=== PATIENT | female | born 1985 | race African-American/Black ===

== ENCOUNTER 2017-05-25 02:34 | Emergency (ER) | payer SELFPAY ==
[~2017-05-25] VITALS: Ht 170.2 cm; Wt 56.6 kg
[~2017-05-25 02:34] MED LIST: AMOXICILLIN500 MG PO; AUGMENTIN875 MG OR; CORTISPORIN OTI10 ML AD; FLEXERIL10 MG PO; LORTAB 10 OR; MACROBID100 MG PO; MEDDOSEPAK PO; NAPROSYN500 MG PO; NO HOME MEDS; PENICILLN VK500 MG PO; PREVACID30 M2 PO; PYRIDIUM200 MG PO; REGLAN10 MG OR
[2017-05-25 03:11] VITALS: BP 121/81
== END 2017-05-25 03:11 | disposition left against medical advice (07) | DRG 607 ==
LOC: ED 02:34
DX: R22.0 Localized swelling, mass and lump, head (principal); Z91.19 Patient's noncompliance with other medical treatment and regimen

== ENCOUNTER 2019-05-23 02:43 | Emergency (ER) | payer SELFPAY ==
[~2019-05-23] VITALS: Ht 172.7 cm; Wt 60.0 kg
[2019-05-23] MEDS ORDERED: VOLTAREN - GENE75 MG PO (02:59)
[2019-05-23] MEDS ORDERED: TRAMADOL HCL50 MG PO (02:59)
[2019-05-23] MEDS ORDERED: AMOXICILLIN500 MG PO (02:59)
[2019-05-23 03:31] VITALS: BP 129/88
== END 2019-05-23 03:32 | disposition home or self-care (01) | DRG 159 ==
LOC: ED 02:43
DX: K02.9 Dental caries, unspecified (principal); K04.7 Periapical abscess without sinus

== ENCOUNTER 2019-08-23 05:55 | Emergency (ER) | payer SELFPAY ==
[~2019-08-23] VITALS: Ht 172.7 cm; Wt 56.8 kg
[~2019-08-23 05:55] MED LIST changes: +TRAMADOL HCL50 MG PO; +VOLTAREN - GENE75 MG PO
[2019-08-23 06:52] VITALS: BP 131/88
== END 2019-08-23 06:43 | disposition left against medical advice (07) | DRG 951 ==
LOC: ED 05:55 → LWOBS 06:43
DX: Z53.21 Procedure and treatment not carried out due to patient leaving prior to being seen by health care provider (principal)

== ENCOUNTER 2019-11-03 | Emergency (ER) | payer BC ==
[2019-11-03 17:03] LABS: HEMOGLOBIN 11.9 g/dl (12.0-16.0); IMMATURE GRANULOCYTES 0.3 % (0.0-5.0); MEAN CORPUSCULAR HGB 27.5 pG CALC (26.0-32.0); MEAN CORPUSCULAR HGB CONC 31.3 g/L CALC (32.0-36.0); NEUT# 5.3 thou/uL (2.00-7.15); RED BLOOD COUNT 4.32 mill/uL (4.20-5.60); RED CELL DISTRI WIDTH 13.1 % (11.5-15.5)
[2019-11-03 17:21] LABS: ALBUMIN 4.5 g/dL (3.2-5.0); ALKALINE PHOSPHATASE 60 u/l (38-126); ANION GAP 13 (6-22 (CALC)); BILIRUBIN, TOTAL 0.5 mg/dL (0.0-1.4); BUN 10 mg/dL (7-17); BUN/CREATININE RATIO 13 (12-20 (CALC)); CARBON DIOXIDE 22 mmol/l (22-30); CHLORIDE 105 mmol/l (95-108); CREATININE 0.8 mg/dL (0.5-1.0); GFR > 60 ML/MIN (>=60 (CALC)); GFR FOR AFR.AMER. > 60 ML/MIN (>=60 (CALC)); LIPASE 114 u/l (23-300); POTASSIUM 3.7 mmol/l (3.5-5.1); SGOT/AST 24 u/l (14-36); SODIUM 137 mmol/l (137-146); TOTAL PROTEIN 8.9 g/dL (6.3-8.2)
[2019-11-03] MEDS ORDERED: NAPROSYN250 MG PO ×2 (18:05)
[2019-11-03 18:36] LABS: URINE BILIRUBIN - DIPSTICK NEGATIVE (NEGATIVE); URINE BLOOD DIPSTICK NEGATIVE (NEGATIVE); URINE COLOR YELLOW; URINE GLUCOSE - DIPSTICK NEGATIVE (NEGATIVE); URINE KETONE NEGATIVE (NEGATIVE); URINE LEUK ESTERASE NEGATIVE (NEGATIVE); URINE NITRITE - DIPSTICK NEGATIVE (Negative); URINE PROTEIN - DIPSTICK NEGATIVE (NEG-TRACE); URINE UROBILINOGEN - DIPSTICK 0.2 E.U./dL (0.2)
[2019-11-03 18:41] LABS: URINE AMORPH SEDIMENT MANY hpf (NONE-FEW); URINE RBC 0-2 RBC/hpf (0-5); URINE SQUAMOUS EPITHELIAL CELL FEW EPI/hpf (0-FEW); URINE WBC 0-2 WBC/hpf (0-5)
== END 2019-11-03 18:28 | disposition home or self-care (01) | DRG 313 ==
DX: R07.89 Other chest pain (principal)

== ENCOUNTER 2020-03-26 09:03 | Emergency (ER) | payer SELFPAY ==
[~2020-03-26] VITALS: Ht 172.7 cm; Wt 55.0 kg
[~2020-03-26 09:03] MED LIST changes: +NAPROSYN250 MG PO
[2020-03-26] MEDS ORDERED: MEDDOSEPAK PO ×2 (09:36)
[2020-03-26 09:43] VITALS: BP 131/83
== END 2020-03-26 10:00 | disposition home or self-care (01) | DRG 596 ==
LOC: ED 09:03
DX: L93.1 Subacute cutaneous lupus erythematosus (principal)

== ENCOUNTER 2020-06-12 08:16 | Emergency (ER) | payer SELFPAY ==
[~2020-06-12] VITALS: Ht 172.7 cm; Wt 55.0 kg
[2020-06-12] MEDS ORDERED: MEDDOSEPAK PO ×3 (08:44→09:00)
[2020-06-12] MEDS ORDERED: CEPHALEXIN500 MG PO (09:07)
[2020-06-12] MEDS ORDERED: NEOSPORI2 EX ×2 (09:07)
[2020-06-12 09:11] VITALS: BP 138/85
== END 2020-06-12 09:18 | disposition home or self-care (01) | DRG 596 ==
LOC: ED 08:16
DX: L93.0 Discoid lupus erythematosus (principal); S80.861A Insect bite (nonvenomous), right lower leg, initial encounter; L08.9 Local infection of the skin and subcutaneous tissue, unspecified; W57.XXXA Bitten or stung by nonvenomous insect and other nonvenomous arthropods, initial encounter

== ENCOUNTER 2020-06-23 04:36 | Emergency (ER) | payer SELFPAY ==
[~2020-06-23] VITALS: Ht 172.7 cm; Wt 56.8 kg
[~2020-06-23 04:36] MED LIST changes: +CEPHALEXIN500 MG PO; +NEOSPORI2 EX
[2020-06-23 05:44] LABS: HEMATOCRIT 38.3 % (37.0-47.0); HEMOGLOBIN 12.3 g/dl (12.0-16.0); IMMATURE GRANULOCYTES 0.2 % (0.0-5.0); MEAN CORPUSCULAR HGB CONC 32.1 g/dL CAL (32.0-36.0); NEUT# 3.04 thou/uL (2.00-7.15); RED BLOOD COUNT 4.4 mill/uL (4.20-5.60); RED CELL DISTRI WIDTH 12.2 % (11.5-15.5)
[2020-06-23 05:47] LABS: URINE BILIRUBIN - DIPSTICK NEGATIVE (NEGATIVE); URINE BLOOD DIPSTICK NEGATIVE (NEGATIVE); URINE COLOR YELLOW; URINE GLUCOSE - DIPSTICK NEGATIVE (NEGATIVE); URINE KETONE NEGATIVE (NEGATIVE); URINE LEUK ESTERASE NEGATIVE (NEGATIVE); URINE NITRITE - DIPSTICK NEGATIVE (Negative); URINE PH 6.5 (4.5-8.0); URINE PROTEIN - DIPSTICK NEGATIVE (NEG-TRACE); URINE SPECIFIC GRAVITY 1.025; URINE UROBILINOGEN - DIPSTICK 0.2 E.U./dL (0.2)
[2020-06-23 05:58] LABS: ALBUMIN 4.3 g/dL (3.2-5.0); ALKALINE PHOSPHATASE 74 u/l (38-126); AMYLASE 131 u/l (30-110); ANION GAP 12 (6-22 (CALC)); BILIRUBIN, TOTAL 0.5 mg/dL (0.0-1.4); BUN 9 mg/dL (7-17); BUN/CREATININE RATIO 12 (12-20 (CALC)); CARBON DIOXIDE 23 mmol/l (22-30); CHLORIDE 107 mmol/l (95-108); CREATININE 0.7 mg/dL (0.5-1.0); GFR > 60 ML/MIN (>=60 (CALC)); GFR FOR AFR.AMER. > 60 ML/MIN (>=60 (CALC)); LIPASE 157 u/l (23-300); SGOT/AST 24 u/l (14-36); SODIUM 138 mmol/l (137-146); TOTAL PROTEIN 8.3 g/dL (6.3-8.2)
[2020-06-23 10:00] VITALS: BP 132/74
== END 2020-06-23 10:00 | disposition home or self-care (01) | DRG 761 ==
LOC: ED 04:36
PROVIDERS: Emergency Medicine
DX: N83.201 Unspecified ovarian cyst, right side (principal)
CPT/HCPCS: Q9967

== ENCOUNTER 2020-10-23 06:52 | Emergency (ER) | payer SELFPAY ==
[~2020-10-23] VITALS: Ht 172.7 cm; Wt 61.2 kg
[2020-10-23] MEDS ORDERED: MEDDOSEPAK PO (07:31)
[2020-10-23 08:04] VITALS: BP 110/63
== END 2020-10-23 08:04 | disposition home or self-care (01) | DRG 596 ==
LOC: ED 06:52
DX: L93.1 Subacute cutaneous lupus erythematosus (principal)

== ENCOUNTER 2020-11-22 07:04 | Emergency (ER) | payer SELFPAY ==
[~2020-11-22] VITALS: Ht 172.7 cm; Wt 65.0 kg
[2020-11-22 07:55] LABS: URINE BILIRUBIN - DIPSTICK NEGATIVE (NEGATIVE); URINE BLOOD DIPSTICK NEGATIVE (NEGATIVE); URINE COLOR YELLOW; URINE GLUCOSE - DIPSTICK NEGATIVE (NEGATIVE); URINE KETONE NEGATIVE (NEGATIVE); URINE LEUK ESTERASE NEGATIVE (NEGATIVE); URINE NITRITE - DIPSTICK NEGATIVE (Negative); URINE PROTEIN - DIPSTICK NEGATIVE (NEG-TRACE); URINE UROBILINOGEN - DIPSTICK 0.2 E.U./dL (0.2)
[2020-11-22] MEDS ORDERED: NAPROXEN500 MG PO (08:48)
[2020-11-22] MEDS ORDERED: CYCLOBENZAPRINE10 MG PO (08:48)
[2020-11-22 08:53] VITALS: BP 139/79
== END 2020-11-22 09:00 | disposition home or self-care (01) | DRG 552 ==
LOC: ED 07:04
PROVIDERS: Emergency Medicine
DX: S13.9XXA Sprain of joints and ligaments of unspecified parts of neck, initial encounter (principal); X50.1XXA Overexertion from prolonged static or awkward postures, initial encounter; Y93.89 Activity, other specified; Y92.89 Other specified places as the place of occurrence of the external cause

== ENCOUNTER 2021-02-04 03:03 | Emergency (ER) | payer OTHER ==
[~2021-02-04] VITALS: Ht 172.7 cm; Wt 59.0 kg
[~2021-02-04 03:03] MED LIST changes: +CYCLOBENZAPRINE10 MG PO; +NAPROXEN500 MG PO
[2021-02-04 03:39] LABS: HEMATOCRIT 41.4 % (37.0-47.0); HEMOGLOBIN 12.6 g/dl (12.0-16.0); IMMATURE GRANULOCYTES 0.3 % (0.0-5.0); MEAN CORPUSCULAR HGB 27.4 pG CALC (26.0-32.0); MEAN CORPUSCULAR HGB CONC 30.4 g/dL CAL (32.0-36.0); NEUT# 1.7 thou/uL (2.00-7.15); RED BLOOD COUNT 4.6 mill/uL (4.20-5.60); RED CELL DISTRI WIDTH 12.7 % (11.5-15.5)
[2021-02-04 03:43] LABS: URINE BILIRUBIN - DIPSTICK NEGATIVE (NEGATIVE); URINE BLOOD DIPSTICK NEGATIVE (NEGATIVE); URINE COLOR YELLOW; URINE GLUCOSE - DIPSTICK NEGATIVE (NEGATIVE); URINE KETONE NEGATIVE (NEGATIVE); URINE LEUK ESTERASE NEGATIVE (NEGATIVE); URINE PROTEIN - DIPSTICK NEGATIVE (NEG-TRACE); URINE SPECIFIC GRAVITY 1.015; URINE UROBILINOGEN - DIPSTICK 0.2 E.U./dL (0.2)
[2021-02-04 03:44] LABS: URINE NITRITE - DIPSTICK NEGATIVE (Negative)
[2021-02-04 04:06] LABS: ALBUMIN 4.2 g/dL (3.2-5.0); ALKALINE PHOSPHATASE 62 u/l (38-126); ANION GAP 11 (6-22 (CALC)); BILIRUBIN, TOTAL 0.7 mg/dL (0.0-1.4); BUN 9 mg/dL (7-17); BUN/CREATININE RATIO 10 (12-20 (CALC)); CARBON DIOXIDE 25 mmol/l (22-30); CHLORIDE 106 mmol/l (95-108); CREATININE 0.9 mg/dL (0.5-1.0); GFR > 60 ML/MIN (>=60 (CALC)); GFR FOR AFR.AMER. > 60 ML/MIN (>=60 (CALC)); LIPASE 260 u/l (23-300); SGOT/AST 26 u/l (14-36); SODIUM 138 mmol/l (137-146); TOTAL PROTEIN 8.4 g/dL (6.3-8.2)
[2021-02-04 06:18] VITALS: BP 116/78
== END 2021-02-04 06:30 | disposition home or self-care (01) | DRG 392 ==
LOC: ED 03:03
PROVIDERS: Emergency Medicine
DX: R10.32 Left lower quadrant pain (principal); N85.9 Noninflammatory disorder of uterus, unspecified
CPT/HCPCS: Q9967

== ENCOUNTER 2021-12-19 00:48 | Emergency (ER) | payer SELFPAY ==
[~2021-12-19] VITALS: Ht 172.7 cm; Wt 60.0 kg
[2021-12-19] MEDS ORDERED: PREDNISONE5 MG PO (01:05)
[2021-12-19 02:06] LABS: HEMATOCRIT 37.8 % (37.0-47.0); HEMOGLOBIN 12.1 g/dl (12.0-16.0); MEAN CELL VOLUME 88.5 fL CALC (80.0-100.0); MEAN CORPUSCULAR HGB 28.3 pG CALC (26.0-32.0); NEUT# 2.41 thou/uL (2.00-7.15); RED BLOOD COUNT 4.27 mill/uL (4.20-5.60); RED CELL DISTRI WIDTH 12.3 % (11.5-15.5)
[2021-12-19 02:18] LABS: ALKALINE PHOSPHATASE 60 u/l (38-126); AMYLASE 117 u/l (30-110); ANION GAP 10 (6-22 (CALC)); BILIRUBIN, TOTAL 0.5 mg/dL (0.0-1.4); BUN 7 mg/dL (7-17); BUN/CREATININE RATIO 8 (12-20 (CALC)); CARBON DIOXIDE 21 mmol/l (22-30); CHLORIDE 109 mmol/l (95-108); CREATININE 0.8 mg/dL (0.5-1.0); GFR > 60 ML/MIN (>=60 (CALC)); GFR FOR AFR.AMER. > 60 ML/MIN (>=60 (CALC)); LIPASE 170 u/l (23-300); POTASSIUM 3.7 mmol/l (3.5-5.1); SGOT/AST 22 u/l (14-36); SODIUM 137 mmol/l (137-146); TOTAL PROTEIN 7.9 g/dL (6.3-8.2)
[2021-12-19] MEDS ORDERED: TORADOL PO (05:01)
[2021-12-19 05:04] VITALS: BP 118/84
== END 2021-12-19 05:16 | disposition home or self-care (01) | DRG 392 ==
LOC: ED 00:48
PROVIDERS: Emergency Medicine
DX: R10.32 Left lower quadrant pain (principal)

== ENCOUNTER 2022-02-13 13:21 | Emergency (ER) | payer OTHER ==
[~2022-02-13] VITALS: Ht 172.7 cm; Wt 62.0 kg
[~2022-02-13 13:21] MED LIST changes: +PREDNISONE5 MG PO; +TORADOL PO
[2022-02-13 13:51] VITALS: BP 136/93
[2022-02-13 14:11] LABS: HEMOGLOBIN 12.1 g/dl (12.0-16.0); IMMATURE GRANULOCYTES 0.1 % (0.0-5.0); MEAN CELL VOLUME 89.6 fL CALC (80.0-100.0); MEAN CORPUSCULAR HGB 28.5 pG CALC (26.0-32.0); MEAN CORPUSCULAR HGB CONC 31.8 g/dL CAL (32.0-36.0); NEUT# 9.26 thou/uL (2.00-7.15); RED BLOOD COUNT 4.24 mill/uL (4.20-5.60); RED CELL DISTRI WIDTH 12.4 % (11.5-15.5)
[2022-02-13 14:13] LABS: URINE BILIRUBIN - DIPSTICK NEGATIVE (NEGATIVE); URINE BLOOD DIPSTICK NEGATIVE (NEGATIVE); URINE COLOR YELLOW; URINE GLUCOSE - DIPSTICK NEGATIVE (NEGATIVE); URINE KETONE NEGATIVE (NEGATIVE); URINE LEUK ESTERASE NEGATIVE (NEGATIVE); URINE PH 7.5 (4.5-8.0); URINE PROTEIN - DIPSTICK NEGATIVE (NEG-TRACE); URINE SPECIFIC GRAVITY 1.025
[2022-02-13 14:18] LABS: URINE NITRITE - DIPSTICK NEGATIVE (Negative)
[2022-02-13 14:21] LABS: URINE SQUAMOUS EPITHELIAL CELL MANY EPI/hpf (0-FEW)
[2022-02-13 14:39] LABS: ANION GAP 11 (6-22 (CALC)); BUN 7 mg/dL (7-17); BUN/CREATININE RATIO 9 (12-20 (CALC)); CARBON DIOXIDE 25 mmol/l (22-30); CHLORIDE 106 mmol/l (95-108); CREATININE 0.8 mg/dL (0.5-1.0); GFR > 60 ML/MIN (>=60 (CALC)); GFR FOR AFR.AMER. > 60 ML/MIN (>=60 (CALC)); SODIUM 137 mmol/l (137-146)
[2022-02-13] MEDS ORDERED: MEDROL4 M1 PO (15:01)
[2022-02-13 15:24] VITALS: BP 136/93
== END 2022-02-13 15:40 | disposition home or self-care (01) | DRG 552 ==
LOC: ED 13:21
PROVIDERS: Nurse Practitioner
DX: M54.50 Low back pain, unspecified (principal); M79.605 Pain in left leg; M79.604 Pain in right leg

== ENCOUNTER 2022-12-02 03:09 | Emergency (ER) | payer SELFPAY ==
[~2022-12-02] VITALS: Ht 172.7 cm; Wt 57.0 kg
[~2022-12-02 03:09] MED LIST changes: +MEDROL4 M1 PO
[2022-12-02 03:19] VITALS: BP 122/87
[2022-12-02 03:30] VITALS: BP 125/89
[2022-12-02 04:21] VITALS: BP 125/89
== END 2022-12-02 03:59 | disposition left against medical advice (07) | DRG 951 ==
LOC: ED 03:09 → LWOBS 03:59
DX: Z53.21 Procedure and treatment not carried out due to patient leaving prior to being seen by health care provider (principal)

== ENCOUNTER 2023-05-19 06:33 | Emergency (ER) | payer OTHER ==
[~2023-05-19] VITALS: Ht 172.7 cm; Wt 61.0 kg
[2023-05-19 08:21] LABS: BASO% 0.3 % (0-3); HEMATOCRIT 41.8 % (37.0-47.0); HEMOGLOBIN 13.1 g/dl (12.0-16.0); LYMPH% 22.5 % (15-41); MEAN CELL VOLUME 89.5 fL CALC (80.0-100.0); MEAN CORPUSCULAR HGB 28.1 pG CALC (26.0-32.0); MEAN CORPUSCULAR HGB CONC 31.3 g/dL CAL (32.0-36.0); MONO% 13.4 % (2-13); NEUT# 2.43 thou/uL (2.00-7.15); NEUT% 62.8 % (42-76); RED BLOOD COUNT 4.67 mill/uL (4.20-5.60); RED CELL DISTRI WIDTH 12.3 % (11.5-15.5)
[2023-05-19] MEDS ORDERED: BETAMETH DIP0.052 EX (08:29)
[2023-05-19] MEDS ORDERED: ALDACTONE25 MG PO (08:29)
[2023-05-19 09:06] LABS: ALBUMIN 4.6 g/dL (3.2-5.0); ALKALINE PHOSPHATASE 52 u/l (38-126); BUN 11 mg/dL (7-17); BUN/CREATININE RATIO 12 (12-20 (CALC)); CARBON DIOXIDE 24 mmol/l (22-30); CHLORIDE 106 mmol/l (95-108); CREATININE 0.9 mg/dL (0.5-1.0); GFR FOR AFR.AMER. > 60 ML/MIN (>=60 (CALC)); GFR OTHER RACES > 60 ML/MIN (>=60 (CALC)); SODIUM 139 mmol/l (137-146); TOTAL PROTEIN 8.9 g/dL (6.3-8.2)
[2023-05-19 09:08] LABS: ANION GAP 14 (6-22 (CALC)); BILIRUBIN, TOTAL 0.8 mg/dL (0.02-1.3); SGOT/AST 40 u/l (14-36)
[2023-05-19] MEDS ORDERED: MEDROL DOSEPAK4 MG PO (09:30)
[2023-05-19 09:32] VITALS: BP 125/77
== END 2023-05-19 09:32 | disposition home or self-care (01) | DRG 547 ==
LOC: ED 06:33
PROVIDERS: Family Medicine
DX: M32.9 Systemic lupus erythematosus, unspecified (principal)

== ENCOUNTER 2023-06-08 02:06 | Emergency (ER) | payer OTHER ==
[~2023-06-08] VITALS: Ht 172.7 cm; Wt 61.2 kg
[~2023-06-08 02:06] MED LIST changes: +ALDACTONE25 MG PO; +BETAMETH DIP0.052 EX; +MEDROL DOSEPAK4 MG PO
[2023-06-08 02:18] VITALS: BP 118/84
[2023-06-08] MEDS ORDERED: LORTAB 1010 MG PO ×2 (02:39→03:18)
[2023-06-08] MEDS ORDERED: AMOXICILLIN500 MG PO ×2 (02:39→03:18)
== END 2023-06-08 03:17 | disposition home or self-care (01) | DRG 159 ==
LOC: ED 02:06
DX: K04.7 Periapical abscess without sinus (principal); S02.5XXA Fracture of tooth (traumatic), initial encounter for closed fracture; X58.XXXA Exposure to other specified factors, initial encounter

== ENCOUNTER 2024-12-07 16:36 | Emergency (ER) | payer OTHER ==
[~2024-12-07] VITALS: Ht 172.7 cm; Wt 64.0 kg
[~2024-12-07 16:36] MED LIST changes: +LORTAB 1010 MG PO; +PROTONIX40 M2 PO
[2024-12-07 17:10] LABS: URINE BILIRUBIN - DIPSTICK Negative (NEGATIVE); URINE BLOOD DIPSTICK Large (NEGATIVE); URINE GLUCOSE - DIPSTICK Negative (NEGATIVE); URINE KETONE 15 mg/dL (NEGATIVE); URINE NITRITE - DIPSTICK Negative (Negative); URINE PROTEIN - DIPSTICK 30 mg/dL (NEG-TRACE); URINE SPECIFIC GRAVITY 1.025; URINE UROBILINOGEN - DIPSTICK 0.2 E.U./dL (0.2)
[2024-12-07 17:12] LABS: URINE COLOR Yellow; URINE LEUK ESTERASE Small (NEGATIVE)
[2024-12-07 17:16] LABS: URINE BACTERIA MODERATE hpf; URINE RBC 50-100 RBC/hpf (0-5); URINE SQUAMOUS EPITHELIAL CELL MODERATE EPI/hpf (0-FEW)
[2024-12-07] MEDS ORDERED: DIFLUCAN150 MG PO (17:24)
[2024-12-07] MEDS ORDERED: MACROBID100 M1 PO (17:24)
[2024-12-07 17:52] VITALS: BP 127/88
== END 2024-12-07 17:59 | disposition home or self-care (01) | DRG 690 ==
LOC: ED 16:36
PROVIDERS: Nurse Practitioner
DX: N39.0 Urinary tract infection, site not specified (principal)